=== PATIENT | male | born 1960 | race Two or more races ===

== ENCOUNTER 2017-12-08 10:00 | Inpatient (IN) | payer OTHER ==
[~2017-12-08] VITALS: Ht 170.2 cm; Wt 86.2 kg
[2017-12-13] MEDS ORDERED: DIOVAN HCT 1601 EACH PO (11:58)
[2017-12-13] MEDS ORDERED: PLAVIX75 MG PO (11:58)
[2017-12-13] MEDS ORDERED: METROPOLOL PO (11:59)
[2017-12-13] MEDS ORDERED: CRESTOR20 MG PO (12:00)
[2017-12-13] MEDS ORDERED: ASPIR 8181 MG PO (12:00)
[2017-12-13] MEDS ORDERED: ZETIA10 MG PO (12:00)
[2017-12-13] MEDS ORDERED: HUMALOG KW100 UNIT/1 (12:01)
[2017-12-13] MEDS ORDERED: TOUGEO (12:02)
[2017-12-16] MEDS ORDERED: COLACE100 MG PO (09:30)
[2017-12-16] MEDS ORDERED: NEURONTIN800 MG PO (09:30)
[2017-12-16] MEDS ORDERED: AMOX-CLAV 875-1 EACH PO (09:31)
[2017-12-16] MEDS ORDERED: PERCOCET 5-3251 EACH PO (09:32)
[2017-12-16] MEDS ORDERED: CLONAZEPAM1 MG PO (09:32)
== END 2017-12-17 15:04 | disposition home or self-care (01) | DRG 460 ==
LOC: O/R 12-16 04:30 → PED 12-16 04:30 → SURG 12-16 10:15 → PED 12-16 11:25 → SURG 12-16 11:45 → PED 12-17 15:04
PROVIDERS: Orthopaedic Surgery Orthopaedic Surgery of the Spine
PROC: 0SG00AJ Fusion of Lumbar Vertebral Joint with Interbody Fusion Device, Posterior Approach, Anterior Column, Open Approach (ICD-10-PCS; 2017-12-16)
PROC: 0ST20ZZ Resection of Lumbar Vertebral Disc, Open Approach (ICD-10-PCS; 2017-12-16)
PROC: 07DS3ZZ Extraction of Vertebral Bone Marrow, Percutaneous Approach (ICD-10-PCS; 2017-12-16)
PROC: 0SG00A0 Fusion of Lumbar Vertebral Joint with Interbody Fusion Device, Anterior Approach, Anterior Column, Open Approach (ICD-10-PCS; principal; 2017-12-16 10:15)
DX: M47.26 Other spondylosis with radiculopathy, lumbar region (principal); M51.16 Intervertebral disc disorders with radiculopathy, lumbar region; M48.061 Spinal stenosis, lumbar region without neurogenic claudication; E11.9 Type 2 diabetes mellitus without complications; I10 Essential (primary) hypertension; M62.81 Muscle weakness (generalized); R26.89 Other abnormalities of gait and mobility

== ENCOUNTER 2018-03-01 08:45 | Outpatient (CLI) | payer OTHER ==
[~2018-03-01 08:45] MED LIST: AMOX-CLAV 875-1 EACH PO; ASPIR 8181 MG PO; CLONAZEPAM1 MG PO; COLACE100 MG PO; CRESTOR20 MG PO; DIOVAN HCT 1601 EACH PO; HUMALOG KW100 UNIT/1; METROPOLOL PO; NEURONTIN800 MG PO; PERCOCET 5-3251 EACH PO; PLAVIX75 MG PO; TOUGEO; ZETIA10 MG PO
== END 2018-03-01 08:58 | disposition home or self-care (01) ==
LOC: RAD 501 08:45
DX: M51.36 Other intervertebral disc degeneration, lumbar region (principal); Z98.1 Arthrodesis status

== ENCOUNTER 2023-10-25 09:45 | Inpatient (IN) | payer OTHER ==
[~2023-10-25] VITALS: Ht 170.2 cm; Wt 79.4 kg
[2023-10-25] MEDS ORDERED: COZAAR25 MG PO (11:06)
[2023-10-25] MEDS ORDERED: CARVEDILOL12.5 M1 PO (11:06)
[2023-10-25] MEDS ORDERED: ROSUVASTATIN CA20 MG PO (11:07)
[2023-10-25] MEDS ORDERED: LANTUS SOL100 UNIT/1 (11:07)
[2023-11-01] MEDS ORDERED: PERCOCET 5-3251 EACH PO (13:09)
[2023-11-01] MEDS ORDERED: MEDROLPACK PO (13:10)
[2023-11-01] MEDS ORDERED: AMOX-CLAV 875-1 EACH PO (13:10)
[2023-11-01] MEDS ORDERED: COLACE100 MG PO (13:11)
[2023-11-01] MEDS ORDERED: GABAPENTIN100 M2 PO (13:11)
[2023-11-01] MEDS ORDERED: NEURONTIN800 MG PO (13:12)
[2023-11-01] MEDS ORDERED: PROMETHAZINE HCL 50 MG/ML AMPUL IM PRN (13:15)
[2023-11-01] MEDS ORDERED: ENALAPRILAT DIHYDRATE 1.25 MG/ML VIAL IV PRN (13:15)
[2023-11-01] MEDS ORDERED: 0.9 % SODIUM CHLORIDE 1,000 ML IV SCH (13:15)
[2023-11-01] MEDS ORDERED: VANCOMYCIN HCL 1,000 MG VIAL IR SCH (15:45)
[2023-11-01] MEDS ORDERED: TRANEXAMIC ACID 1,000 MG in 0.9 % SODIUM CHLORIDE 100 ML IV ONE (15:45)
[2023-11-01] MEDS ORDERED: VANCOMYCIN HCL 1,000 MG in 0.9 % SODIUM CHLORIDE 250 ML IV ONE (15:45)
[2023-11-01] MEDS ORDERED: METHYLPREDNISOLONE ACETATE 80 MG/ML VIAL IJ ONE ×2 (15:45)
[2023-11-01] MEDS ORDERED: METHYLPREDNISOLONE SOD SUCC 125 MG VIAL IV ONE ×3 (15:45→18:30)
[2023-11-01] MEDS ORDERED: METHYLPREDNISOLONE SOD SUCC 125 MG VIAL IV SCH ×2 (15:45→17:00)
[2023-11-01] MEDS ORDERED: CEFAZOLIN SODIUM 2,000 MG in 0.9 % SODIUM CHLORIDE 100 ML IV ONE (15:45)
[2023-11-01] MEDS ORDERED: CEFAZOLIN SODIUM 1,000 MG in 0.9 % SODIUM CHLORIDE 50 ML IV SCH (17:00)
[2023-11-01] MEDS ORDERED: FAMOtidine 20 MG TABLET PO SCH (17:00)
[2023-11-01] MEDS ORDERED: MORPHINE SULFATE 2 MG,MORPHINE SULFATE 4 MG IV SCH (17:00)
[2023-11-01] MEDS ORDERED: DOCUSATE SODIUM 100MG CAP PO SCH (17:00)
[2023-11-01] MEDS ORDERED: MORPHINE SULFATE 4 MG/ML VIAL IV SCH (17:00)
[2023-11-01 17:36] LABS: HEMATOCRIT 30.2 % (39.0-48.0); HEMOGLOBIN 9.9 g/dL (13-16.00); MEAN CORPUSCULAR HEMOGLOBIN 25.3 pg (27.00-32.0); MEAN CORPUSCULAR HGB CONC 32.9 g/dl (32.0-36.0); PLATELET COUNT 264 K/uL (150-450); RED BLOOD COUNT 3.92 M/uL (4.00-6.00); RED CELL DISTRIBUTION WIDTH 16.1 % (11.5-14.5)
[2023-11-01] MEDS ORDERED: TRANEXAMIC ACID 100MG/1ML (1000MG) AMPUL IV ONE (18:30)
[2023-11-01] MEDS ORDERED: DEXTROSE 50 % IN WATER 0.5 G/ML VIAL IV PRN (20:30)
[2023-11-01] MEDS ORDERED: INSULIN LISPRO 1,000 UNIT/10 ML UNITS SUBCUTANEO PRN (20:30)
[2023-11-01] MEDS ORDERED: GABAPENTIN 800 MG TABLET PO SCH (21:00)
[2023-11-01] MEDS ORDERED: VANCOMYCIN HCL 1,000 MG VIAL IV SCH (21:00)
[2023-11-02] MEDS ORDERED: SODIUM CHLORIDE 0.45 % 1,000 ML IV SCH
[2023-11-02] MEDS ORDERED: OxyCODONE HCL/APAP UD (PERCOCET) PO PRN (06:01)
[2023-11-02 06:53] LABS: HEMATOCRIT 27.8 % (39.0-48.0); MEAN CELL VOLUME 77.8 fL (80.0-100.00); MEAN CORPUSCULAR HEMOGLOBIN 25.3 pg (27.00-32.0); MEAN CORPUSCULAR HGB CONC 32.5 g/dl (32.0-36.0); PLATELET COUNT 256 K/uL (150-450); RED BLOOD COUNT 3.57 M/uL (4.00-6.00); RED CELL DISTRIBUTION WIDTH 16.2 % (11.5-14.5)
[2023-11-02 07:05] LABS: CALCIUM 8.1 mg/dL (8.5-10.1); CREATININE SERUM 1.49 mg/dL (0.70-1.30); GFR 47.95; POTASSIUM 5.35 mEq/L (3.5-5.1)
[2023-11-02] MEDS ORDERED: LOSARTAN POTASSIUM 25 MG TABLET PO SCH (09:00)
[2023-11-02] MEDS ORDERED: CARVEDILOL 12.5 MG TABLET PO SCH (09:00)
[2023-11-03] MEDS ORDERED: ENOXAPARIN SODIUM 40 MG/0.4 ML SYRINGE SUBCUTANEO SCH (09:00)
== END 2023-11-03 22:04 | DRG 455 ==
LOC: O/R 11-01 06:27 → SURH 11-01 09:45 → PED 11-01 19:29
PROVIDERS: ADMIT Orthopaedic Surgery Orthopaedic Surgery of the Spine; ATTEND Orthopaedic Surgery Orthopaedic Surgery of the Spine
PROC: 0SG1071 Fusion of 2 or more Lumbar Vertebral Joints with Autologous Tissue Substitute, Posterior Approach, Posterior Column, Open Approach (ICD-10-PCS; 2023-11-01)
PROC: 0ST20ZZ Resection of Lumbar Vertebral Disc, Open Approach (ICD-10-PCS; 2023-11-01)
PROC: 0ST40ZZ Resection of Lumbosacral Disc, Open Approach (ICD-10-PCS; 2023-11-01)
PROC: XRGD0R7 Fusion of Lumbosacral Joint using Custom-Made Anatomically Designed Interbody Fusion Device, Open Approach, New Technology Group 7 (ICD-10-PCS; 2023-11-01)
PROC: 0SG3071 Fusion of Lumbosacral Joint with Autologous Tissue Substitute, Posterior Approach, Posterior Column, Open Approach (ICD-10-PCS; 2023-11-01)
PROC: 0QB30ZZ Excision of Left Pelvic Bone, Open Approach (ICD-10-PCS; 2023-11-01)
PROC: 07DR0ZZ Extraction of Iliac Bone Marrow, Open Approach (ICD-10-PCS; 2023-11-01)
PROC: 4A1104G Monitoring of Peripheral Nervous Electrical Activity, Intraoperative, Open Approach (ICD-10-PCS; 2023-11-01)
PROC: XRGC0R7 Fusion of 2 or more Lumbar Vertebral Joints using Custom-Made Anatomically Designed Interbody Fusion Device, Open Approach, New Technology Group 7 (ICD-10-PCS; principal; 2023-11-01 17:15)
DX: M48.062 Spinal stenosis, lumbar region with neurogenic claudication (principal); M41.56 Other secondary scoliosis, lumbar region; M48.07 Spinal stenosis, lumbosacral region